=== PATIENT | female | born 1960 | race Asian ===

== ENCOUNTER 2017-03-26 20:03 | Emergency (ER) | payer OTHER ==
[~2017-03-26] VITALS: Ht 160 cm; Wt 59.0 kg
[2017-03-26 20:30] VITALS: BP 156/94
[2017-03-26] MEDS ORDERED: IBUPROFEN 600 MG TABLET PO ONE ×2 (21:00)
--- NOTE | 2017-03-26 21:03 | NUR ---
RADIOLOGY AT BEDSIDE FOR L KNEE XRAY.
== END 2017-03-26 21:59 | disposition home or self-care (01) ==
LOC: ER 20:05
DX: S46.812A Strain of other muscles, fascia and tendons at shoulder and upper arm level, left arm, initial encounter (principal); E11.9 Type 2 diabetes mellitus without complications; I10 Essential (primary) hypertension; S80.02XA Contusion of left knee, initial encounter; Z88.0 Allergy status to penicillin; V43.52XA Car driver injured in collision with other type car in traffic accident, initial encounter; Y93.89 Activity, other specified; Y92.488 Other paved roadways as the place of occurrence of the external cause; Y99.8 Other external cause status
CPT/HCPCS: 73564-TC; A4606; Z7610